=== PATIENT | male | born 1990 | race Caucasian/White ===

== ENCOUNTER → 2021-02-23 | Outpatient (CLI) | payer OTHER ==
[~2021-02-23] MED LIST: GASTROGRAFIN SOLUTION 30ML (Q9963) As Ordered ONE; ISOVUE-370 76% 100ML VIAL As Ordered ONE
--- NOTE | 2021-02-23 16:36 | REP ---
INDICATION: RLQ PAIN, GROSS HEMATURIA. COMPARISON: None. TECHNIQUE: Imaging protocol: Computed tomography of the abdomen and pelvis with oral and without and with IV contrast. Contiguous 3 mm thick axial projection images were obtained through the abdomen and pelvis. 2D sagittal and coronal reconstructions were performed. Radiation optimization: All CT scans at this facility use at least one of these dose optimization techniques: automated exposure control; mA and/or kV adjustment per patient size (includes targeted exams where dose is matched to clinical indication); or iterative reconstruction. Contrast material: ISOVUE 370; Contrast volume: 100 ml; Contrast route: INTRAVENOUS (IV). FINDINGS: Heart and lung bases: The heart size is normal. There is no pericardial effusion. The lung bases are clear. There are no pleural effusions. Liver: Normal. Gallbladder: Normal. Spleen: Normal. Pancreas: Normal. Adrenal glands: Normal. Kidneys/bladder: The kidneys enhance and excrete normally. There is no evidence of nephrolithiasis, ureterolithiasis or hydronephrosis. The urinary bladder appears normal. Pelvic structures: Prostate gland is normal in size. The seminal vesicles are unremarkable. There is no free fluid the pelvis. There is no pelvic or inguinal lymphadenopathy. GI tract: There is stool throughout the colon. The appendix is not demonstrated. Abdominal wall and mesentery: There are no abdominal wall defects. There is no mesenteric or retroperitoneal lymphadenopathy. Abdominal aorta and vascular structures: The abdominal aorta, inferior vena cava, and portal venous system are normal. Bony structures: There are Schmorl's nodes in the vertebral endplates of multiple lower thoracic and lumbar vertebral bodies. There is a limbus vertebrae at L4. There is minimal dextroscoliosis of the lower thoracic spine and levoscoliosis of the lumbar spine. The SI joints and hips are unremarkable. IMPRESSION: 1. No evidence of nephrolithiasis, ureterolithiasis or hydronephrosis. 2. Mild constipation. 3. Other findings as noted. <Electronically signed by Breezy Vaca > 02/23/21 [id number]
== END ==
LOC: M RAD 14:22
PROVIDERS: ATTEND Internal Medicine Gastroenterology
DX: R10.31 Right lower quadrant pain (principal); R31.0 Gross hematuria; K59.00 Constipation, unspecified; M51.45 Schmorl's nodes, thoracolumbar region

== ENCOUNTER → 2021-03-21 | Outpatient (CLI) | payer OTHER ==
--- NOTE | 2021-03-21 09:47 | REP ---
INDICATION: NAUSEA, OTH DISEASE OF GALLBLADDER. COMPARISON: None TECHNIQUE/RADIOTRACER AND DOSE: FOLLOWING THE INTRAVENOUS ADMINISTRATION OF 6.6 MCI TECHNETIUM 99 M-MEBROFENIN, MULTIPLE IMAGES OF THE RIGHT UPPER QUADRANT ARE PERFORMED FOR 60 MINUTES. NEXT 8 OZ OF ENSURE ENLIVE IS INGESTED AND FURTHER IMAGING IS PERFORMED FOR 65 MINUTES. FINDINGS: THE GALLBLADDER IS VISUALIZED AT 10 MINUTES POST INJECTION. THERE IS BILIARY TO BOWEL TRANSIT AT 35MINUTES POST INJECTION. THERE IS NO SCINTIGRAPHIC EVIDENCE OF CHOLECYSTITIS. GALLBLADDER EJECTION FRACTION IS CALCULATED TO BE 67% WHICH IS NORMAL. IMPRESSION: NORMAL GALLBLADDER EJECTION FRACTION. <Electronically signed by Wesly Nicole > 03/21/21 [id number]
== END ==
LOC: M RAD 07:06 → EDUNIT# 08:00
PROVIDERS: ATTEND Internal Medicine Gastroenterology
DX: K82.8 Other specified diseases of gallbladder (principal); R11.0 Nausea
CPT/HCPCS: 78227; A9537